=== PATIENT | male | born 1985 | race Caucasian/White ===

== ENCOUNTER → 2025-04-22 | Outpatient (CLI) | payer OTHER ==
--- NOTE | 2025-04-22 14:24 | HMCIMG ---
CLINICAL HISTORY: Follow-up DVT. TECHNIQUE: Ultrasound examination of bilateral lower extremity veins was performed in real time and duplex. One or more of the following were performed- spectral analysis, resistive index, waveform analysis, and pulsed Doppler. COMPARISON: None. FINDINGS: An echogenic thrombi are noted in the left distal superficial femoral veins and popliteal veins with partial compressibility suggesting old thrombi/synechia. Normal phasic, non-pulsatile and spontaneous flow is noted in bilateral GSV, SFJ, common femoral, right superficial femoral, right popliteal veins. Visualized veins of both lower extremities demonstrate normal compressibility. No sonographic evidence of acute deep vein thrombosis (DVT) is detected in the visualized veins of both lower extremities. Compression and Augmentation: All evaluated veins compress fully with applied transducer pressure. Augmentation of venous flow is noted with distal compression. Additional Findings: Left inguinal normal-appearing enlarged lymph nodes are seen with the largest are seen measuring 1.7 x 1.0 cm and 1.4 x 0.7 cm. IMPRESSION: * An echogenic thrombi are noted in the left distal superficial femoral veins and popliteal veins with partial compressibility suggesting old thrombi/synechia. * No sonographic evidence of acute DVT detected in bilateral lower extremity veins, at the time of examination. /[place]
== END | disposition home or self-care (01) ==
LOC: EEVIPCON 08:47 → RAH 08:47
PROVIDERS: ATTEND Family Medicine
DX: I82.432 Acute embolism and thrombosis of left popliteal vein (principal); I82.812 Embolism and thrombosis of superficial veins of left lower extremity; I82.412 Acute embolism and thrombosis of left femoral vein; I82.402 Acute embolism and thrombosis of unspecified deep veins of left lower extremity; R59.0 Localized enlarged lymph nodes
CPT/HCPCS: 93970